=== PATIENT | female | born 1965 | race Two or more races ===

== ENCOUNTER 2020-05-04 09:30 | Inpatient (IN) | payer OTHER ==
[~2020-05-04] VITALS: Ht 162.6 cm; Wt 88.9 kg
[~2020-05-04 09:30] MED LIST: MOTRIN800 MG PO; NEURONTIN300 MG PO; NORFLEX100 MG PO; TORADOL10 MG PO
[2020-05-04] MEDS ORDERED: XARELTO10 M1 PO (11:27)
[2020-05-11] MEDS ORDERED: CLONAZEPAM1 MG PO (13:24)
[2020-05-11] MEDS ORDERED: PERCOCET 5-3251 EACH PO (13:24)
[2020-05-11] MEDS ORDERED: COLACE100 MG PO (13:24)
== END 2020-05-12 12:16 | disposition home or self-care (01) | DRG 473 ==
LOC: O/R 05-11 04:50 → SURH 05-11 04:50
PROVIDERS: ADMIT Orthopaedic Surgery Orthopaedic Surgery of the Spine; ATTEND Orthopaedic Surgery Orthopaedic Surgery of the Spine
PROC: 0RG2070 Fusion of 2 or more Cervical Vertebral Joints with Autologous Tissue Substitute, Anterior Approach, Anterior Column, Open Approach (ICD-10-PCS; 2020-05-11)
PROC: 0RB30ZZ Excision of Cervical Vertebral Disc, Open Approach (ICD-10-PCS; 2020-05-11)
PROC: 3E0U0GB Introduction of Recombinant Bone Morphogenetic Protein into Joints, Open Approach (ICD-10-PCS; 2020-05-11)
PROC: 07DS3ZZ Extraction of Vertebral Bone Marrow, Percutaneous Approach (ICD-10-PCS; 2020-05-11)
PROC: 0RG20A0 Fusion of 2 or more Cervical Vertebral Joints with Interbody Fusion Device, Anterior Approach, Anterior Column, Open Approach (ICD-10-PCS; principal; 2020-05-11 09:15)
DX: M50.022 Cervical disc disorder at C5-C6 level with myelopathy (principal)

== ENCOUNTER 2021-07-06 16:35 | Emergency (ER) | payer OTHER ==
[~2021-07-06] VITALS: Ht 162.6 cm; Wt 90.7 kg
[~2021-07-06 16:35] MED LIST changes: +CLONAZEPAM1 MG PO; +COLACE100 MG PO; +PERCOCET 5-3251 EACH PO; +XARELTO10 M1 PO
[2021-07-06] MEDS ORDERED: PERCOCET 5-3251 EACH PO (21:55)
== END 2021-07-06 22:12 | disposition home or self-care (01) ==
LOC: ER 16:35
DX: R07.89 Other chest pain (principal); M79.632 Pain in left forearm; T50.B95A Adverse effect of other viral vaccines, initial encounter

== ENCOUNTER 2021-08-23 09:37 | Day surgery (SDC) | payer OTHER ==
[~2021-08-23 09:37] MED LIST changes: +METFORMIN HCL500 M3 PO; +ROSUVASTATIN CAL5 MG PO
== END 2021-08-24 03:00 | disposition home or self-care (01) ==
LOC: CIR.AMB 09:37
PROVIDERS: ATTEND Obstetrics & Gynecology
DX: N95.0 Postmenopausal bleeding (principal); Z30.432 Encounter for removal of intrauterine contraceptive device; Q51.818 Other congenital malformations of uterus

== ENCOUNTER 2024-04-30 09:45 | Inpatient (IN) | payer OTHER ==
[~2024-04-30] VITALS: Ht 162.6 cm; Wt 74.4 kg
[2024-05-08] MEDS ORDERED: PROMETHAZINE HCL 50 MG/ML AMPUL IM PRN (07:30)
[2024-05-08] MEDS ORDERED: 0.9 % SODIUM CHLORIDE 1,000 ML IV SCH (07:30)
[2024-05-08] MEDS ORDERED: ENALAPRILAT DIHYDRATE 1.25 MG/ML VIAL IV PRN (07:30)
[2024-05-08] MEDS ORDERED: PERCOCET 5-3251 EACH PO (07:34)
[2024-05-08] MEDS ORDERED: MEDROLPACK PO (07:34)
[2024-05-08] MEDS ORDERED: COLACE100 MG PO (07:35)
[2024-05-08] MEDS ORDERED: CEFAZOLIN SODIUM 1,000 MG in 0.9 % SODIUM CHLORIDE 50 ML IV SCH (09:00)
[2024-05-08] MEDS ORDERED: VANCOMYCIN HCL 1,000 MG VIAL IV ONE (09:15)
[2024-05-08] MEDS ORDERED: METHYLPREDNISOLONE ACETATE 80 MG/ML VIAL IJ ONE (09:15)
[2024-05-08] MEDS ORDERED: CEFAZOLIN SODIUM 1,000 MG VIAL IV ONE (09:15)
[2024-05-08] MEDS ORDERED: METHYLPREDNISOLONE SOD SUCC 125 MG VIAL IV ONE ×2 (09:15)
[2024-05-08] MEDS ORDERED: VANCOMYCIN HCL 1,000 MG VIAL IR ONE (09:30)
[2024-05-08] MEDS ORDERED: ISOPROPYL ALCOHOL 30 ML OUNCE TOP ONE (09:30)
[2024-05-08] MEDS ORDERED: TAMSULOSIN HCL 0.4 MG CAP PO SCH (12:00)
[2024-05-08] MEDS ORDERED: METHYLPREDNISOLONE SOD SUCC 125 MG VIAL IV SCH (13:00)
[2024-05-08] MEDS ORDERED: DOCUSATE SODIUM 100MG CAP PO SCH (13:00)
[2024-05-08] MEDS ORDERED: MORPHINE SULFATE 4 MG/ML CARTRIDGE IV SCH (13:00)
[2024-05-08] MEDS ORDERED: FAMOtidine 20 MG TABLET PO SCH (17:00)
[2024-05-08 18:15] VITALS: BP 143/84; O2SAT 98
[2024-05-08] MEDS ORDERED: INSULIN LISPRO 1,000 UNIT/10 ML UNITS SUBCUTANEO PRN (18:15)
[2024-05-08] MEDS ORDERED: ACETAMINOPHEN 500 MG GEL..CAP PO SCH (20:00)
[2024-05-08] MEDS ORDERED: ZOLPIDEM TARTRATE 10 MG TABLET PO SCH (21:00)
[2024-05-08] MEDS ORDERED: VANCOMYCIN HCL 1,000 MG in 0.9 % SODIUM CHLORIDE 250 ML IV SCH (21:00)
[2024-05-08 22:27] VITALS: BP 131/85; O2SAT 97
[2024-05-09] MEDS ORDERED: SODIUM CHLORIDE 0.45 % 1,000 ML IV SCH
[2024-05-09 00:14] VITALS: BP 131/71; O2SAT 98
[2024-05-09 04:00] VITALS: BP 130/81; O2SAT 98
[2024-05-09] MEDS ORDERED: OxyCODONE HCL 5 MG TABLET (ROXICODONE) PO PRN (06:01)
[2024-05-09 06:16] LABS: HEMATOCRIT 39.6 % (36.0-45.00); HEMOGLOBIN 13.8 g/dL (12.0-15.00); MEAN CORPUSCULAR HEMOGLOBIN 29.2 pg (27.00-32.0); MEAN CORPUSCULAR HGB CONC 34.8 g/dl (32.0-36.0); PLATELET COUNT 213 K/uL (150-450); RED BLOOD COUNT 4.72 M/uL (4.00-6.00); RED CELL DISTRIBUTION WIDTH 14.4 % (11.5-14.5)
[2024-05-09 07:01] LABS: ALBUMIN 3.2 gm/dL (3.4-5.0); BILIRUBIN TOTAL 0.85 mg/dL (0.3-1.2); CALCIUM 9.2 mg/dL (8.5-10.1); CREATININE SERUM 0.4 mg/dL (0.55-1.02); GFR 163.94; GLOBULINA 2.8 G/DL (2.4-3.5); PHOSPHOROUS 4.4 mg/dL (2.5-4.9); POTASSIUM 4.25 mEq/L (3.5-5.1)
[2024-05-09 08:36] VITALS: BP 114/69; O2SAT 98
[2024-05-09] MEDS ORDERED: VANCOMYCIN HCL 1,000 MG in 0.9 % SODIUM CHLORIDE 250 ML IV SCH (09:00)
[2024-05-09] MEDS ORDERED: ENOXAPARIN SODIUM 40 MG/0.4 ML SYRINGE SUBCUTANEO SCH (09:00)
[2024-05-09 12:16] VITALS: BP 136/73; O2SAT 98
== END 2024-05-09 13:42 | disposition home or self-care (01) | DRG 473 ==
LOC: O/R 05-08 05:16 → SURH 05-08 07:00 → PED 05-08 15:58
PROVIDERS: Internal Medicine; ADMIT Orthopaedic Surgery Orthopaedic Surgery of the Spine; ATTEND Orthopaedic Surgery Orthopaedic Surgery of the Spine
PROC: 0RT30ZZ Resection of Cervical Vertebral Disc, Open Approach (ICD-10-PCS; 2024-05-08)
PROC: 07DS0ZZ Extraction of Vertebral Bone Marrow, Open Approach (ICD-10-PCS; 2024-05-08)
PROC: 4A11X4G Monitoring of Peripheral Nervous Electrical Activity, Intraoperative, External Approach (ICD-10-PCS; 2024-05-08)
PROC: 0RG20A0 Fusion of 2 or more Cervical Vertebral Joints with Interbody Fusion Device, Anterior Approach, Anterior Column, Open Approach (ICD-10-PCS; principal; 2024-05-08 07:00)
DX: M50.023 Cervical disc disorder at C6-C7 level with myelopathy (principal)

== ENCOUNTER 2025-06-12 11:25 | Emergency (ER) | payer OTHER ==
[~2025-06-12] VITALS: Ht 162.6 cm; Wt 75.7 kg
[~2025-06-12 11:25] MED LIST changes: +MEDROLPACK PO
[2025-06-12] MEDS ORDERED: MORPHINE SULFATE 4 MG/ML CARTRIDGE IV STA (12:50)
[2025-06-12] MEDS ORDERED: ONDANSETRON HCL 2 MG/ML VIAL IV STA (12:50)
[2025-06-12] MEDS ORDERED: FAMOTIDINE/PF 20 MG/2 ML VIAL IV STA (12:50)
[2025-06-12] MEDS ORDERED: 0.9 % SODIUM CHLORIDE 1,000 ML IV SCH (13:00)
[2025-06-12 14:34] LABS: BASO % 0.5 % (0.1-1.2); EOS # 0.08 (0.04-0.54); EOS % 1.8 % (0.7-7.0); LYMPH # 0.73 (1.18-3.74); LYMPH % 16.6 % (19.3-53.1); MEAN PLATELET VOLUME 10.20 fl (9.4-12.4); MONO # 0.32 (0.24-0.82); MONO % 7.3 % (4.7-12.5); NEUT # 3.24 (1.56-6.13); NEUT % 73.6 % (34.0-71.1); RED CELL DISTRIBUTION WIDTH 13.1 % (11.6-14.4)
[2025-06-12 14:43] LABS: ERYTHROCYTE SEDIMENTATION RATE 21 mm/hr (0-30)
[2025-06-12 14:49] LABS: INR 0.99
[2025-06-12 14:53] LABS: ALT/SGPT 35.0 U/L (12-78); AST/SGOT 27.0 U/L (15-37); BILIRUBIN TOTAL 1.13 mg/dL (0.3-1.2); BUN CREA RATIO 19.0 (7.0-25.0); CREATININE SERUM 0.52 mg/dL (0.55-1.02); GFR 120.69; GLOBULINA 3.5 G/DL (2.4-3.5); GLUCOSE FASTING 97.0 mg/dL (65-100); OSMOLALITY SERUM 280.0 MOSM/KG (275-295)
[2025-06-12 15:21] LABS: URINE APPEARANCE Clear; URINE BILIRRUBIN Negative (NEGATIVE); URINE BLOOD Negative; URINE COLOR Yellow; URINE GLUCOSE Negative (NEGATIVE); URINE KETONE Negative (NEGATIVE); URINE LEUKOCYTE Negative; URINE NITRATE Negative; URINE PROTEIN Negative (NEGATIVE); URINE UROBILINOGEN 0.2 E.U./dl
[2025-06-12 15:27] LABS: URINE BACTERIA 171.5 uL (0.0-1933); URINE EPITHELIAL CELLS 11.0 uL (0.0-38.8); URINE WBC 6.2 uL (0.0-23.2)
[2025-06-12 15:53] LABS: URINE CAST 0.14 uL (0.0-1.40); URINE RBC 0.5 uL (0.0-20.8)
[2025-06-12] MEDS ORDERED: METRONIDAZOLE500 MG PO (23:48)
[2025-06-12] MEDS ORDERED: PEPCID AC20 MG PO (23:48)
[2025-06-12] MEDS ORDERED: CIPRO500 MG PO (23:48)
[2025-06-12] MEDS ORDERED: REGLAN5 MG/5 ML PO (23:48)
== END 2025-06-12 23:59 | disposition home or self-care (01) ==
LOC: ER 11:25
PROVIDERS: Physician Assistant Medical
DX: R10.9 Unspecified abdominal pain (principal); E11.9 Type 2 diabetes mellitus without complications; Z79.84 Long term (current) use of oral hypoglycemic drugs; Z88.6 Allergy status to analgesic agent
CPT/HCPCS: 36415; 74177; 96365; 96366; 99284; J2270; J2405; J3490; J7030; Q9965